=== PATIENT | male | born 1990 | race Caucasian/White ===

== ENCOUNTER 2018-04-04 03:05 | Emergency (ER) | payer OTHER ==
[2018-04-04 03:16] VITALS: BP 171/100
--- NOTE | 2018-04-04 03:20 | EDPHY ---
H & P Stated Complaint: R shoulder pain, thinks it is dislocated Time Seen by Provider: 04/04/18 03:20 HPI/ROS: HPI CHIEF COMPLAINT: Right shoulder discomfort. HISTORY OF PRESENT ILLNESS: 27-year-old male presents emergency room with right shoulder discomfort. Patient states that he was sleeping was having very bad dream and was fighting in his dream. States he was punching very hard and he thinks he may have dislocated his right shoulder. He arrives to the emergency room complaining of right shoulder discomfort. He does feel that it may be back in place. He has never had a shoulder dislocation. He denies any bowel bladder incontinence, denies seizure activity. Denies drugs or alcohol. Past Medical History: Denies significant medical history Past Surgical History: Denies significant surgical history Social History: Smokes tobacco. Homeless. Family History: Noncontributory ROS REVIEW OF SYSTEMS: 10 Systems were reviewed and negative with the exception of the elements mentioned in the history of present illness. Exam Constitutional triage nursing summary reviewed, vital signs reviewed, awake/ alert. Eyes normal conjunctivae and sclera, EOMI, PERRLA. HENT normal inspection, atraumatic, moist mucus membranes, no epistaxis, neck supple/ no meningismus, no raccoon eyes. Respiratory clear to auscultation bilaterally, normal breath sounds, no respiratory distress, no wheezing. Cardiovascular rate normal, regular rhythm, no murmur, no edema, distal pulses normal. Gastrointestinal soft, non-tender, no rebound, no guarding, normal bowel sounds, no distension, no pulsatile mass. Genitourinary no CVA tenderness. Musculoskeletal right upper extremity: Neurovascular intact with axillary nerve intact, sensation intact, good distal pulse, good cap refill, full range of motion of the right shoulder, good honing machine operator production strength, full range of motion of the right arm. No obvious deformity. It appears to be appropriately located on exam. no midline vertebral tenderness, full range of motion, no calf swelling, no tenderness of extremities, no meningismus, good pulses, neurovascularly intact. Skin pink, warm, & dry, no rash, skin atraumatic. Neurologic awake, alert and oriented x 3, AAOx3, moves all 4 extremities equally, motor intact, sensory intact, CN II-XII intact, normal cerebellar, normal vision, normal speech. Psychiatric normal mood/affect. Heme/Lymph/Immune no lymphadenopathy. Differential Diagnosis: Includes but is not limited to in a particular order shoulder dislocation relocation, shoulder strain, rotator cuff injury, fracture Medical Decision Making: Plan for this patient x-ray right shoulder. Sling. Re-evaluation: X-ray of the right shoulder reviewed negative for malalignment or fracture. Image interpreted by myself. I went to go update the patient about his testing results including his x-ray at 5:00 a.m. However the patient eloped from the emergency room. He is no longer in his room. I was going to provide him with a sling and orthopedic referral however he is no longer in the emergency room he did not notify staff that he left. Source: Patient - Personal History Current Tetanus/Diphtheria Vaccine: Unsure Current Tetanus Diphtheria and Acellular Pertussis (TDAP): Unsure - Medical/Surgical History Hx Asthma: No Hx Chronic Respiratory Disease: No Hx Diabetes: No Hx Cardiac Disease: No Hx Renal Disease: No Hx Cirrhosis: No Hx Alcoholism: No Hx HIV/AIDS: No Hx Splenectomy or Spleen Trauma: No Other PMH: denies - Social History Smoking Status: Light smoker Constitutional: Initial Vital Signs Temperature (C) 36.6 C 04/04/18 03:13 Heart Rate 98 04/04/18 03:13 Respiratory Rate 16 04/04/18 03:13 Blood Pressure 171/100 H 04/04/18 03:13 O2 Sat (%) 97 04/04/18 03:13 O2 Delivery Mode Room Air Allergies/Adverse Reactions: No Known Allergies Allergy (Unverified 04/04/18 03:13) Home Medications: Medication Instructions Recorded NK [No Known Home Meds] 04/04/18 Departure - Departure Disposition: Home, Routine, Self-Care Clinical Impression: Right shoulder strain Qualifiers: Encounter type: initial encounter Qualified Code(s): S46.911A - Strain of unspecified muscle, fascia and tendon at shoulder and upper arm level, right arm , initial encounter Condition: Good Instructions: Rotator Cuff Injury (ED) Additional Instructions: 1. Ice your shoulder and rest. 2. Sling for comfort. 3. Follow up with Orthopedics Referrals: NONE *PRIMARY CARE P,. [Primary Care Provider] - As per Instructions Zach Perez MD [Medical Doctor] - As per Instructions
== END 2018-04-04 05:08 | disposition home or self-care (01) ==
DX: S46.911A Strain of unspecified muscle, fascia and tendon at shoulder and upper arm level, right arm, initial encounter (principal); X50.1XXA Overexertion from prolonged static or awkward postures, initial encounter; Z59.0 Homelessness